=== PATIENT | male | born 2000 | race Caucasian/White ===

== ENCOUNTER → 2023-08-22 09:26 | Outpatient (BNVA) | payer MEDICAID, SELFPAY | PROVIDERS: PCP Nurse Practitioner Family; Visit Provider Nurse Practitioner Family | DX: M62.81 Muscle weakness (generalized) (principal); M25.50 Pain in unspecified joint; R53.83 Other fatigue; Z76.89 Persons encountering health services in other specified circumstances; K21.9 Gastro-esophageal reflux disease without esophagitis | CPT/HCPCS: 80053; 80061; 83036; 84403; 84443; 85025; 85651; 86140; 86160; 86162; 86235; 86255; 86376; 86431 ==

== ENCOUNTER → 2023-11-11 10:34 | Outpatient (BNVA) | payer MEDICAID, SELFPAY | PROVIDERS: PCP Nurse Practitioner Family; Visit Provider Nurse Practitioner Family | DX: R19.7 Diarrhea, unspecified (principal); R35.0 Frequency of micturition | CPT/HCPCS: 80053; 81000; 85025 ==

== ENCOUNTER 2024-01-06 13:23 | Outpatient (CLI) | payer MEDICAID, SELFPAY ==
--- NOTE | 2024-01-06 13:27 | MR_ITS ---
WS: [id number] MRI HEAD WITH CONTRAST TECHNIQUE: Sagittal T1, T2 axial, T2 axial FLAIR, axial susceptibility weighted imaging, axial diffus ion weighted images, and coronal T2 images were obtained. Pre and post-T1 axial and post T1 coronal i mages. ADC and FSPGR images. CLINICAL INFORMATION: DIZZINESS COMPARISON: None. FINDINGS: No evidence of restricted diffusion to suggest acute ischemia. Ventricular system and basal cisterns are patent. No suspicious intracranial signal abnormalities. Normal aleman-white differentiation. Rosemarie l posterior fossa. Normal vascular flow voids at the skull base. No extra-axial fluid collections. No evidence of mass or mass effect. Small retention cyst RIGHT maxillary sinus. No hemosiderin on the susceptibly weighted images. Normal optic chiasm and pituitary infundibulum. Te mporal lobes and hippocampal formations are normal in appearance. No abnormal gadolinium enhancement. Normal optic chiasm and pituitary infundibulum. Normal dural venous sinuses. 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 No hydrocep halus. Pineal cysts have been associated with headaches but are typically asymptomatic. Recommend 12- month follow-up to confirm stability. MR/MR head wo/w con [id number] IMPRESSION: 1. No evidence of restricted diffusion to suggest acute ischemia. 2. No suspicious intracranial signal abnormalities. Normal aleman-white differen tiation. 3. 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 No hydr ocephalus. This is likely incidental but recommend 12-month follow-up MRI witho ut and with gadolinium enhancement to confirm stability. 4. Small retention cyst RIGHT maxillary sinus measuring 10 mm. 5. No abnormal gadolinium enhancement. 6. No other suspicious findings.
== END 2024-01-06 13:24 | disposition home or self-care (01) ==
LOC: RAD 13:24
PROVIDERS: PCP Nurse Practitioner Family; Visit Provider Internal Medicine
DX: D35.4 Benign neoplasm of pineal gland (principal); J34.1 Cyst and mucocele of nose and nasal sinus; R42 Dizziness and giddiness
CPT/HCPCS: 70553

== ENCOUNTER 2024-02-03 12:56 | Emergency (ER) | payer MEDICAID, SELFPAY ==
[2024-02-03 12:58] VITALS: BP 131/85; PULSE 72; RESP 18; TEMP 36.5; O2SAT 97; BMI 44.9
--- NOTE | 2024-02-03 13:38 | W.ED.HA ---
HPI - Headache General: Chief Complaint: Headache Stated Complaint: Headache / NV Time Seen by Provider: 02/03/24 13:26 Source: patient Mode of arrival: ambulatory Limitations: no limitations History of Present Illness: 23-year-old male states he has been having headaches it has been ongoing for months. He states he did follow-up with PCP states are trying to get him to a neurologist he does not appointment till April. States that headaches are every day had an MRI earlier this month is able to see the results that are negative. Denies any fever denies any worsening improving factors Associated symptoms: Deny chest pain, fever(s), nausea, rash or vomiting Related Data Previous Rx's Medication Instructions Recorded propranolol 20 mg tablet 20 mg PO BID PRN anxiety #60 tabs 08/13/23 pantoprazole 40 mg tablet,delayed 40 mg PO DAILY #30 tabs 08/22/23 release (Protonix) clotrimazole 1 % topical cream 1 applic topical BID 2 weeks #30 09/17/23 grams ketoconazole 2 % topical cream 1 applic topical BID #30 grams 09/17/23 loperamide 2 mg capsule (Imodium See Rx Instructions PO .COMPLEX 11/11/23 A-D) PRN loose stool #30 caps ondansetron HCl 8 mg tablet 8 mg PO Q8H PRN nausea and 11/11/23 vomiting #30 tabs celecoxib 200 mg capsule (Celebrex) 200 mg PO BID #60 caps 11/28/23 lithium carbonate 300 mg capsule 300 mg PO BID #60 caps 01/01/24 Allergies Allergy/AdvReac Type Severity Reaction Status Date / Time NKDA Allergy NKDA Uncoded 01/01/24 13:55 Review of Systems Const: Denies: fever(s), chills, body aches or change in appetite ENMT: Denies: throat pain or dental pain Card: Denies: chest pain Resp: Denies: dyspnea GI: Denies: abdominal pain, nausea, vomiting or diarrhea Musc: Denies: neck pain or back pain Skin/Breast: Denies: rash Neuro: Reports: headache(s) [facility] ED PFSH: Medical History Bipolar I disorder, most recent episode mixed, severe without psychotic features History of eating disorder Binging and purging, last episode couple of months ago Major depressive disorder, recurrent, moderate History of separation anxiety Generalized anxiety disorder GERD (gastroesophageal reflux disease) Psychiatric care Social History Smoking and tobacco/nicotine status: never used tobacco/nicotine Physical Exam Const: COMMON NORMALS: no acute distress, patient oriented x3 and healthy appearing HENMT: COMMON NORMALS: normocephalic and atraumatic HEAD & SCALP: normocephalic and atraumatic Eye: COMMON NORMALS: conjunctivae normal CONJUNCTIVA: Yes conjunctivae normal Neck/C-Spine: COMMON NORMALS: full ROM and supple Chest: COMMONS NORMALS: normal inspection of the chest Resp: COMMON NORMALS: normal respiratory effort Cardio: COMMON NORMALS: regular rate RATE: regular rate Extremity: COMMON NORMALS: normal to inspection and full ROM Neuro: COMMON NORMALS: patient oriented x3, moves all extremities and no focal motor deficits Psych: COMMON NORMALS: mental status grossly normal, Normal thought process present and cooperative THOUGHT PROCESS: Normal thought process present Skin: COMMON NORMALS: no rashes or lesions noted and no wounds GENERAL SKIN EXAM: no rashes or lesions noted Course Vital Signs: Vital signs: Vital Signs Temperature 97.7 F 02/03/24 12:58 Pulse Rate 72 02/03/24 12:58 Respiratory Rate 18 02/03/24 12:58 Blood Pressure 131/85 02/03/24 12:58 Pulse Oximetry 97 02/03/24 12:58 Oxygen Delivery Me thod Room Air 02/03/24 12:58 MDM - Headache Medical Decision Making Patient presents here with a headache has been ongoing headaches for months she had a normal MRI there is no signs of meningitis or subarachnoid hemorrhage here did give him Reglan Benadryl Toradol he is to follow-up with neurology return if worsening he understands agrees to plan Medical Records I reviewed the patient's medical records. No radiology studies performed this visit Discharge Plan Discharge Patient Disposition: Home Clinical Impression: Headache Condition: Stable Prescriptions: No Action pantoprazole [Protonix] 40 mg tablet,delayed release (DR/EC) 40 mg PO DAILY Qty: 30 2RF ketoconazole 2 % cream 1 applic topical BID Qty: 30 0RF Rx Instructions: large area trunk clotrimazole 1 % cream 1 applic topical BID 14 Days Qty: 30 0RF Rx Instructions: large area trunk loperamide [Imodium A-D] 2 mg capsule See Rx Instructions PO .COMPLEX PRN (Reason: loose stool) Qty: 30 0RF Rx Instructions: 4 mg after the first loose bowel movement, and 2 mg after each additional loose bowel movement ondansetron HCl 8 mg tablet 8 mg PO Q8H PRN (Reason: nausea and vomiting) Qty: 30 0RF celecoxib [Celebrex] 200 mg capsule 200 mg PO BID Qty: 60 0RF lithium carbonate 300 mg capsule 300 mg PO BID Qty: 60 2RF Rx Instructions: Take one capsule every morning and at 7 pm propranolol 20 mg tablet 20 mg PO BID PRN (Reason: anxiety) Qty: 60 2RF Discharge Orders: Discharge ED (Routine); Ordered 02/03/24 Ordered By: Lillian Aguillon Referrals: Nita Tom FNP-C [Primary Care Provider] - Discharge Diet: Advance as tolerated Discharge Activity: Resume usual activity Patient Instructions: General Headache (ED) Coding Level of Care Code ED Security Solutions Engineer for Rodriguez Rossi
[2024-02-03] MEDS: ketorolac 60 mg/2 mL INJ IM (13:47)
[2024-02-03] MEDS: metoclopramide 5 mg/mL SDV 2 mL 10 MG IM (13:47)
[2024-02-03] MEDS: diphenhydrAMINE 50 mg/mL SDV 1mL IM (13:47)
[2024-02-03 14:46] VITALS: BP 136/72; PULSE 94; RESP 16; O2SAT 98
--- NOTE | 2024-02-06 02:36 | DCPLANNER ---
Message sent to Neurology for followup on headaches
== END 2024-02-03 14:49 | disposition home or self-care (01) ==
PROVIDERS: Emergency Provider Emergency Medicine; PCP Nurse Practitioner Family
DX: R51.9 Headache, unspecified (principal)
CPT/HCPCS: 96372; 99284; J1200; J1885; J2765

== ENCOUNTER 2024-03-02 18:46 | Emergency (ER) | payer MEDICAID, SELFPAY ==
[2024-03-02 19:11] VITALS: BP 145/78; PULSE 103; RESP 18; TEMP 37.1; O2SAT 98; BMI 44.9
[2024-03-02 19:49] LABS: Basophils # 0.1 10^3/uL (0.0-0.1); Basophils % 0.7 %; Eosinophils # 0.1 10^3/uL (0.0-0.8); Eosinophils % 0.9 %; Hematocrit 50.3 % (37-53); Lymphocytes # 1.2 10^3/uL (0.8-4.8); Lymphocytes % 8.7 %; Mean Corpuscular HGB Conc 33.6 g/dL (30-55); Mean Corpuscular Hemoglobin 26.9 pg (27-33); Mean Corpuscular Volume 80.1 fl (82-101); Mean Platelet Volume 9.2 fL (7.4-10.4); Monocytes # 0.9 10^3/uL (0.2-0.9); Monocytes % 6.7 %; Neutrophils % 82.7 %; Nucleated Red Blood Cells % 0 %; Platelet Count 324 10^3/cmm (157-399); Red Blood Count 6.28 10^6/uL (3.85-5.65); White Blood Count 13.41 10^3/uL (3.29-11.43)
[2024-03-02] MEDS: famotidine 20 mg Tablet 40 MG PO (19:57)
[2024-03-02 20:00] LABS: INR 0.97 (0.8-1.2)
[2024-03-02 20:05] LABS: Alanine Aminotransferase 25 U/L (0-41); Albumin Level 4.8 g/dL (3.5-5.2); Alkaline Phosphatase 81 U/L (40-130); Anion Gap 19.4 (5-19); Aspartate Amino Transferase 21 U/L (0-40); Blood Urea Nitrogen 11 mg/dL (6-20); Calcium 9.6 mg/dL (8.5-10.5); Carbon Dioxide 19 mmol/L (22-29); Chloride 99 mmol/L (98-107); Creatinine Clr Calc Pharmacy 229.1713; Globulin 2.6 g/dL (1.3-4.6); Glomerular Filtration Rate 119.8 mL/min (90-130); Glucose 96 mg/dL (65-115); Magnesium 2.3 mg/dL (1.7-2.3); Osmolality Calculated 275 mOsm/kg (285-295); Potassium 4.4 mmol/L (3.5-5.1); Sodium 133 mmol/L (136-145); Total Bilirubin 0.3 mg/dL (0.15-1.2); Total Protein 7.4 g/dL (6.6-8.7)
--- NOTE | 2024-03-02 20:15 | ED_ITS ---
HPI - Nausea/Vomiting/Diarrhea 2 General: Chief complaint: Nausea/Vomiting/Diarrhea Stated complaint: Vomiting Blood Time Seen by Provider: 03/02/24 19:23 History of Present Illness: Patient presents to the ER with 1 episode of emesis with possible blood in it. Patient's been feeling nauseated and dizzy all day today. He threw up once around 1645. There is estimate about a tablespoon of blood in emesis. Patient's been low off for last 3 to 4 days with my and cloudy feeling confused. Patient denies feeling nauseous dated at this time. Just little bit dizzy. He has been worked up multiple times for this even had an EEG. Patient has appointment with neurologist. Patient was given diagnosis of BPPV earlier in has any Lorena maneuver in the past. Patient says he even had an EGD about a month ago and everything was normal. Related Data Previous Rx's Medication Instructions Recorded clotrimazole 1 % topical cream 1 applic topical BID 2 weeks #30 09/17/23 grams ketoconazole 2 % topical cream 1 applic topical BID #30 grams 09/17/23 loperamide 2 mg capsule (Imodium See Rx Instructions PO .COMPLEX 11/11/23 A-D) PRN loose stool #30 caps trazodone 50 mg tablet 50 mg PO BEDTIME PRN sleep #30 tabs 02/04/24 rizatriptan 10 mg tablet See Rx Instructions PO .COMPLEX 02/12/24 #10 tabs terbinafine HCl 250 mg tablet 250 mg PO DAILY #14 tabs 02/12/24 topiramate 50 mg tablet (Topamax) 50 mg PO BID #60 tabs 02/12/24 quetiapine 50 mg tablet (Seroquel) 50 mg PO .9 pm #30 tabs 02/25/24 Allergies Allergy/AdvReac Type Severity Reaction Status Date / Time No Known Drug Allergies Allergy NKDA Verified 03/02/24 19:21 Review of Systems 2 General: Reports: 10 or more systems reviewed and unremarkable except in HPI and below PFSH ED 2 PFSH: Medical History BPPV (benign paroxysmal positional vertigo) Bipolar I disorder, most recent episode mixed, severe without psychotic features History of eating disorder Binging and purging, last episode couple of months ago Major depressive disorder, recurrent, moderate History of separation anxiety Generalized anxiety disorder GERD (gastroesophageal reflux disease) Psychiatric care Social History Smoking and tobacco/nicotine status: never used tobacco/nicotine Physical Exam 2 Const: COMMON NORMALS: no acute distress, average body habitus, patient oriented x3, no limitations, healthy appearing, alert and well nourished HENMT: COMMON NORMALS: normocephalic, atraumatic, hearing grossly normal bilaterally, external ears normal, Normal external nose present and moist oral mucous membranes HEAD & SCALP: normocephalic and atraumatic NOSE: Normal external nose present EXTERNAL EAR: Yes external ears normal Neck/C-Spine: COMMON NORMALS: no JVD Chest: COMMONS NORMALS: normal inspection of the chest and normal palpation of entire chest wall Resp: COMMON NORMALS: normal respiratory effort, No retractions, No use of accessory muscles and clear to auscultation bilaterally AUSCULTATION: clear to auscultation bilaterally Cardio: COMMON NORMALS: no JVD, regular rate, regular rhythm, S1 normal heart sound present, S2 normal heart sound present, No gallops present (Cardio), No clicks present (Cardio), No murmurs present (Cardio) and No rub (Cardio) R ATE: regular rate RHYTHM: regular rhythm HEART SOUNDS: S1 normal heart sound present and S2 normal heart sound present GI: COMMON NORMALS: Normal to inspection, nondistended, normoactive bowel sounds present, Soft to palpation, non-tender, No hepatosplenomegaly present and no masses PALPATION: Yes Soft to palpation and Yes No hepatosplenomegaly present Neuro: COMMON NORMALS: patient oriented x3 SENSORIUM/ORIENTATION: Yes alert Course 2 Vital Signs: Vital signs: Vital Signs Temperature 98.7 F 03/02/24 19:11 Pulse Rate 117 H 03/02/24 20:50 Respiratory Rate 16 03/02/24 20:50 Blood Pressure 118/74 03/02/24 20:50 Pulse Oximetry 97 03/02/24 20:50 Oxygen Delivery Me thod Room Air 03/02/24 20:50 MDM - Nausea/Vomiting/Diarrhea Medical Decision Making Lab work and EKG was unremarkable other than tachycardia and mild elevation in white blood cells at 13.4, patient will be set up for outpatient Holter monitor and discharge from the ER. Medical Records I reviewed the patient's medical records. Lab Data I reviewed the patient's lab results. 03/02/24 19:40 03/02/24 19:40 Laboratory Results WBC 13.41 10^3/uL (3.29-11.43) H 03/02/24 19:40 RBC 6.28 10^6/uL (3.85-5.65) H 03/02/24 19:40 Hgb 16.90 g/dL (11.27-16.99) 03/02/24 19:40 Hct 50.3 % (37-53) 03/02/24 19:40 MCV 80.1 fl (82-101) L 03/02/24 19:40 MCH 26.9 pg (27-33) L 03/02/24 19:40 MCHC 33.6 g/dL (30-55) 03/02/24 19:40 RDW 13.0 % (12.1-15.1) 03/02/24 19:40 Plt Count 324 10^3/cmm (157-399) 03/02/24 19:40 MPV 9.2 fL (7.4-10.4) 03/02/24 19:40 Neut % (Auto) 82.7 % 03/02/24 19:40 Lymph % (Auto) 8.7 % 03/02/24 19:40 Stan[place]aus % (Auto) 6.7 % 03/02/24 19:40 Eos % (Auto) 0.9 % 03/02/24 19:40 Baso % (Auto) 0.7 % 03/02/24 19:40 Neut # (Auto) 11.10 10^3/uL (1.8-7.7) H 03/02/24 19:40 Lymph # (Auto) 1.2 10^3/uL (0.8-4.8) 03/02/24 19:40 Stanislaus # (Auto) 0.9 10^3/uL (0.2-0.9) 03/02/24 19:40 Eos # (Auto) 0.1 10^3/uL (0.0-0.8) 03/02/24 19:40 Baso # (Auto) 0.1 10^3/uL (0.0-0.1) 03/02/24 19:40 Nucleated RBC % (auto) 0 % 03/02/24 19:40 Nucleated RBCs # 0.0 /100WBC 03/02/24 19:40 PT 13.20 SECONDS (12.1-14.9) 03/02/24 19:40 INR 0.97 (0.8-1.2) 03/02/24 19:40 Sodium 133 mmol/L (136-145) L 03/02/24 19:40 Potassium 4.4 mmol/L (3.5-5.1) 03/02/24 19:40 Chloride 99 mmol/L (98-107) 03/02/24 19:40 Carbon Dioxide 19 mmol/L (22-29) L 03/02/24 19:40 Anion Gap 19.4 (5-19) H 03/02/24 19:40 BUN 11 mg/dL (6-20) 03/02/24 19:40 Creatinine 0.8 mg/dL (0.7-1.2) 03/02/24 19:40 GFR Calculation 119.8 mL/min (90-130) 03/02/24 19:40 Glucose 96 mg/dL (65-115) 03/02/24 19:40 Calculated Osmolality 275 mOsm/kg (285-295) L 03/02/24 19:40 Calcium 9.6 mg/dL (8.5-10.5) 03/02/24 19:40 Magnesium 2.3 mg/dL (1.7-2.3) 03/02/24 19:40 Total Bilirubin 0.3 mg/dL (0.15-1.2) 03/02/24 19:40 AST 21 U/L (0-40) 03/02/24 19:40 ALT 25 U/L (0-41) 03/02/24 19:40 Alkaline Phosphatase 81 U/L (40-130) 03/02/24 19:40 Total Protein 7.4 g/dL (6.6-8.7) 03/02/24 19:40 Albumin 4.8 g/dL (3.5-5.2) 03/02/24 19:40 Globulin 2.6 g/dL (1.3-4.6) 03/02/24 19:40 All radiology interpretation(s) finalized by discharge Discharge Plan Discharge Patient Disposition: Home Clinical Impression: Paroxysmal tachycardia Condition: Stable Prescriptions: No Action ketoconazole 2 % cream 1 applic topical BID Qty: 30 0RF Rx Instructions: large area trunk clotrimazole 1 % cream 1 applic topical BID 14 Days Qty: 30 0RF Rx Instructions: large area trunk loperamide [Imodium A-D] 2 mg capsule See Rx Instructions PO .COMPLEX PRN (Reason: loose stool) Qty: 30 0RF Rx Instructions: 4 mg after the first loose bowel movement, and 2 mg after each additional loose bowel movement trazodone 50 mg tablet 50 mg PO BEDTIME PRN (Reason: sleep) Qty: 30 3RF Rx Instructions: May take one tablet at bedtime as needed for sleep quetiapine [Seroquel] 50 mg tablet 50 mg PO .9 pm Qty: 30 3RF Rx Instructions: Take one tablet at 9 pm terbinafine HCl 250 mg tablet 250 mg PO DAILY Qty: 14 0RF topiramate [Topamax] 50 mg tablet 50 mg PO BID Qty: 60 2RF rizatriptan 10 mg tablet See Rx Instructions PO .COMPLEX Qty: 10 0RF Rx Instructions: take 1 tab at onset of headache; if no relief may repeat 1 tab after at least 2 hrs; max = 3 tabs/24 hr PO Discharge Orders: Discharge ED (Routine); Ordered 03/02/24 Ordered By: Dorian Boss Referrals: Nita Tom FNP-C [Primary Care Provider] - 1 week Patient Instructions: Tachycardia (ED) Activity Restrictions/Additional Instructions: Your evaluation ER that included lab work and EKG was unremarkable other than tachycardia or fast heart rate. This may be the cause of your symptoms. You have been referred to a Holter monitor which is a 14-day EKG like machine that recorded your heart rhythms. Outpatient therapy should be calling you within the next several business days to set this up and arrange this. Please follow- up with your family practitioner the next 7 to 10 days for further evaluation and treatment if needed. Coding Level of Care Code ED Pedicab Driver for Rodriguez Rossi
--- NOTE | 2024-03-02 20:48 | ECG_ITS ---
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 Measurements Intervals Chrisney Rate: 109 P: 32 SD: 120 QRS: 29 QRSD: 90 T: 30 QT: 306 QTc: 413 Interpretive Statements SINUS TACHYCARDIA ABNORMAL RHYTHM ECG No previous ECG available for comparison Electronically Signed On 03-03-2024 19:15:03 NUTRITION PARTNER by Noam Munoz M.D. [email or web address]
[2024-03-02 20:50] VITALS: BP 118/74; PULSE 117; RESP 16; O2SAT 97
[2024-03-02 21:22] VITALS: BP 136/98; PULSE 116; RESP 20; O2SAT 96
--- NOTE | 2024-03-04 08:14 | DCPLANNER ---
faxed holter order to scheduling
== END 2024-03-02 21:26 | disposition home or self-care (01) ==
PROVIDERS: Emergency Provider Emergency Medicine; PCP Nurse Practitioner Family
DX: I47.9 Paroxysmal tachycardia, unspecified (principal)
CPT/HCPCS: 36415; 80053; 83735; 85025; 85610; 93005; 99284

== ENCOUNTER → 2024-06-15 11:09 | Outpatient (BNVA) | payer MEDICAID, SELFPAY | PROVIDERS: PCP Clinical Nurse Specialist Adult Health; Visit Provider Clinical Nurse Specialist Adult Health | DX: I10 Essential (primary) hypertension (principal); R10.9 Unspecified abdominal pain | CPT/HCPCS: 80053; 81000; 83690; 85025; 85651; 86140; 87086 ==

== ENCOUNTER → 2024-10-25 11:01 | Outpatient (BNVA) | payer MEDICAID, SELFPAY | PROVIDERS: PCP Clinical Nurse Specialist Adult Health; Referring Provider Clinical Nurse Specialist Adult Health; Visit Provider Internal Medicine Rheumatology | DX: M53.3 Sacrococcygeal disorders, not elsewhere classified (principal) | CPT/HCPCS: 36415; 72100; 72202; 80076; 82085; 82306; 82550; 82565; 84439; 84443; 85025; 85651; 86140; 86200; 86480; 86704; 86803; 86812; 87340 ==

== ENCOUNTER → 2025-01-07 09:55 | Outpatient (BNVA) | payer MEDICAID, SELFPAY | PROVIDERS: PCP Clinical Nurse Specialist Adult Health; Visit Provider Emergency Medicine | DX: J02.9 Acute pharyngitis, unspecified (principal) | CPT/HCPCS: 87070; 87880 ==